=== PATIENT | male | born 1960 | race Caucasian/White ===

== ENCOUNTER 2024-06-12 08:24 | Observation (INO) ==
--- NOTE | 2024-05-09 10:16 | PAT Medication Instructions ---
Medication Instructions Date of Service May 09, 2024 Home Medications Medication Instructions Recorded epinephrine 0.3 mg/0.3 mL 0.3 mg (0.3 mL) IM Q5M PRN 03/06/21 injection, auto-injector (EpiPen) anaphylaxis #2 ea diclofenac sodium 1 % topical gel 2 g topical QID PRN pain, moderate 10/25/22 #100 grams lisinopril 20 mg tablet 20 mg PO QAM #90 tabs 02/20/24 famotidine 20 mg tablet 20 mg PO BID #60 tabs 05/01/24 fluticasone propionate 50 mcg/actuation nasal spray,suspension (Flonase Allergy Relief) 2 spray intranasal DAILY PRN ibuprofen 200 mg tablet 200 mg PO Q6H PRN sucralfate 1 gram tablet 1 g PO QID PRN epinephrine 0.3 mg/0.3 mL injection, auto-injector (EpiPen) 0.3 mg (0.3 mL) IM Q5M PRN diclofenac sodium 1 % topical gel 2 g topical QID PRN lisinopril 20 mg tablet 20 mg PO QAM famotidine 20 mg tablet 20 mg PO BID Prostagenix 3 tabs PO QAM Upwellness [place] Revive 2 tab PO QAM albuterol sulfate 90 mcg/actuation aerosol inhaler 1 - 2 inh inhalation QID PRN Continue as directed fluticasone propionate 50 mcg/actuation nasal spray,suspension (Flonase Allergy Relief) 2 spray intranasal DAILY PRN(if needed) epinephrine 0.3 mg/0.3 mL injection, auto-injector (EpiPen) 0.3 mg (0.3 mL) IM Q5M PRN(if needed) ASK your surgeon for instructions ibuprofen 200 mg tablet 200 mg PO Q6H PRN STOP taking 2 weeks before surgery (or as soon as possible if surgery is within 2 weeks) Prostagenix 3 tabs PO QAM Upwellness [place] Revive 2 tab PO QAM STOP taking 24 hours before surgery diclofenac sodium 1 % topical gel 2 g topical QID PRN DO NOT take the morning of surgery sucralfate 1 gram tablet 1 g PO QID PRN lisinopril 20 mg tablet 20 mg PO QAM Take morning of surgery With a small sip of water, OTHERWISE NOTHING TO EAT OR DRINK AFTER MIDNIGHT: famotidine 20 mg tablet 20 mg PO BID albuterol sulfate 90 mcg/actuation aerosol inhaler 1 - 2 inh inhalation QID PRN (use if needed; please bring with you to hospital day of surgery if possible) Take evening before surgery sucralfate 1 gram tablet 1 g PO QID PRN(if needed) famotidine 20 mg tablet 20 mg PO BID albuterol sulfate 90 mcg/actuation aerosol inhaler 1 - 2 inh inhalation QID PRN (if needed) Other Notes If you have any questions please call us at [phone] or [phone] or [phone] or [phone]
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
[~2024-06-12 08:24] MED LIST: ROPIVACAINE 0.5% 5 MG/ML 30 ML VIAL ONE
--- NOTE | 2024-06-12 08:41 | History & Physical Bridge Note ---
Date of Service June 12, 2024 History & Physical Bridge Note I have examined the patient, reviewed the History & Physical and in the interval since the performance of the History & Physical I have noted the following changes of clinical significance: no changes noted
[2024-06-12] MEDS: ACETAMINOPHEN 500 MG TAB PO SCH ×2 (09:11→14:25)
[2024-06-12] MEDS: Scopolamine 1 MG TDSY TD SCH (09:12)
[2024-06-12] MEDS: CeleBREX 200 MG CAP PO SCH (09:12)
[2024-06-12] MEDS: METOCLOPRAMIDE HCL 10 MG TABLET PO SCH (09:12)
[2024-06-12] MEDS: LR 60ML/HR IV SCH (09:12)
[2024-06-12] MEDS: FAMOTIDINE 20 MG TAB PO SCH ×2 (09:13→20:44)
[2024-06-12] MEDS ORDERED: MIDAZOLAM HCL 1 MG/ML 2ML VIAL ONE (09:18)
[2024-06-12] MEDS ORDERED: fentaNYL citrate PF 100 MCG/2 ML VIAL ONE (09:18)
[2024-06-12] MEDS ORDERED: LIDOCAINE 2% 2 ML VIAL/AMP(20MG/ML) INFIL ONE (09:23)
[2024-06-12] MEDS ORDERED: PROPOFOL IV EMULSION 10 MG/ML 20 ML VIAL IV ONE (09:23)
[2024-06-12] MEDS: LR 500ML BOLUS, THEN 15ML/HR IV SCH (09:38)
[2024-06-12] MEDS: dexAMETHasone**PF** 10 MG/ML VIAL IV SCH (09:38)
[2024-06-12] MEDS ORDERED: fentaNYL citrate PF 100 MCG/2 ML VIAL IV PRN (09:43)
[2024-06-12] MEDS ORDERED: ONDANSETRON INJ 2 MG/ML 2 ML VIAL IV PRN ×2 (09:43→13:33)
[2024-06-12] MEDS ORDERED: ATROPINE SULFATE 0.1 MG/ML 10ML SYR IV PRN (09:43)
[2024-06-12] MEDS ORDERED: HYDROmorphone INJ 1 MG/ML SYRINGE IV PRN (09:43)
[2024-06-12] MEDS ORDERED: ePHEDrine sulfate 50 MG/ML AMP IV PRN (09:43)
[2024-06-12] MEDS: ceFAZolin 2000MG 2,000 MG/15 ML SYR IV SCH ×2 (10:49→19:08)
[2024-06-12] MEDS: ROPIV 0.5% 246mg, Ketorolac 30mg, EPINEPHrine 0.5mg in NSS INFIL SCH (11:29)
[2024-06-12] MEDS: ORTHO JOINT ANESTHETIC ONE (11:36)
[2024-06-12] MEDS: TRANEXAMIC ACID 1,000 MG **IV Intra-op IV SCH (11:36)
--- NOTE | 2024-06-12 12:28 | Operative Report ---
PG Post Operative Report Pre & Post Diagnosis Operation Date: 06/12/24 10:40 Pre-Op Diagnosis: Left Knee Degenerative Joint Disease Post-Op Diagnosis: Left Knee Degenerative Joint Disease I identified the patient and participated in the time-out.: Yes Procedure Operation Date: 06/12/24 10:40 Actual Procedures p Left Total Knee Arthroplasty, Cemented(Left) - Dante Zuleta MD Surgeon Dante Zuleta MD Media Production Support Manager Brian Ibarra PA-C Estimated Blood Loss 50 Findings Consistent with Post-Op Diagnosis Operative findings were advanced left knee tricompartment DJD. He had extensive grade 4 [id number] disease and eburnation of the medial compartment. He had focal grade 4 changes in the lateral compartment pretty extensive grade 4 changes of the patellofemoral compartment. Moderate-sized joint effusion. Slight flexion contracture. Varus deformity to his knee. Specimens Left knee sent for pathology. Anesthesia Type Spinal MAC Complications none Disposition Accompanied Patient To Recovery: No Indications Patient is a 64-year-old gentleman is had a long history of gradually progressive increasing left knee pain discomfort described to gotten worse over time. Failed conservative measures. X-rays reveal advanced left knee DJD. He elected proceed with operative treatment. Description of Procedure Operative implants consist of: 1 Biomet Vanguard size 65 left posterior stabilized femoral component. 2. Biomet size 75 tibial tray. 3. 12 mm PS plus polyethylene insert. 4. 31 x 8 all poly patella. The patient was taken the operating, identified, placed on the operating table in the supine position. All contact areas were appropriately padded. IV antibiotics tried by anesthesia team. Spinal anesthetic and adductor canal block had been provided by the anesthesia team in the holding area. A left thigh turn was then placed. Left lower extremities then prepped draped in the usual sterile fashion. The left leg was elevated and exsanguinated with use of an Esmarch and a turn was placed at 300 mmHg. An anterior approach to the left knee was then performed to longitudinal incision centered over the patella. Sharp dissection Through subcutaneous tissue down the extensor mechanism. A medial parapatellar arthrotomy incision was made. Some subperiosteal dissection was carried out medially. The fat pad was dissected from Neath patella tendon. The lateral patellofemoral ligament was released. Patella subluxated laterally and the knee was flexed. The osteophytes taken on distal femur. ACL PCL were then released from distal femur the tibia subluxated anteriorly. The external tibial alignment jig was then placed on the anterior face the tibia and adjusted 14 mm medially. Proximal tibial cut was made remove about a millimeter of bone from the most deficient aspect of the medial tibial plateau. The tibia was then sized to a size 75. Attention drawn the femur. The distal femur was entered with a sharp drill. Intramedullary canal was suction. A left 6 degree valgus cutting guide was placed. This femoral cutting block was pinned in place. This femoral cut was made to take an additional 3 mm of bone off distal femur. The femur was then sized to a size 65. The AP cutting block was pinned parallel to the epicondylar axis which was 5 degrees of external rotation. The anterior cut, anterior chamfer, posterior cut, posterior chamfer cuts were made. The box cutting guide was placed in the just slight lateral and the box cut was made. The knee was flexed. The remnants of the medial and lateral menisci were excised. The osteophytes taken off the posterior aspect the femur. A trial femoral component was placed. The tibial tray was pinned Linda external rotation and the drill and stem punch were used to create defect in proximal tibia for the tibial tray. Knee was then trialed and the 12 mm insert fit most appropriately. Attention drawn the patella. The patella was cleaned of all soft tissues. Patella thickness measured 23 mm in thickness was cut down to 15. Was sized to a size 31 patella. The lug holes were drilled for 31 patella. The lateral osteophytes removed. Patella button was placed. Knee was taken through range of motion and the patella tracked nicely with no thumbs test. Attention drawn to place the permanent components. All trial components were removed. A bone plug was placed in the distal femur length to limit blood loss. A double batch [place] G cement was mixed. A Biomet Vanguard size 65 left posterior stabilized femoral component, size 75 tibial tray, a 12 mm posterior stabilized polyethylene insert, 31 x 8 all poly patella then cemented in place. The knee was brought out into full extension till cement hardened. Final cement check was then performed. Pericapsular tissues were injected with a total of 100 cc of a combination of Ortho mix. Patient did receive 1 g tranexamic acid but the tourniquet was then let down for final tourniquet time of 55 minutes. Hemostasis assured with electrocautery. Extensor Meclomen closed with combination 1 PDS suture #1 Vicryl suture in [id number] fashion. Extensor Meclomen checked found to be intact and subcutaneous tissue then closed with 2 Dexon suture in a buried interrupted fashion skin was closed skin cheryl. Leg was then cleaned and dried and sterile dressed with Xeroform, 4 fourths, sterile cast padding, Will bandage applied. Patient then transferred to the recovery in stable condition. Patient tolerated procedure well and there were no complications. I attest to the content of the Intraoperative Record and any orders documented therein. Any exceptions are noted below.
--- NOTE | 2024-06-12 13:20 | XRay Report ---
XR knee LT 1 or 2V routine HISTORY: 64 years-old Male Surgical Post Op left knee arthroplasty COMPARISON: 05/17/2024 TECHNIQUE: 2 views of the left knee FINDINGS: Total joint arthroplasty with patellar resurfacing. Anterior midline skin cheryl with expected posto perative soft tissue swelling and deep tissue air. No acute fracture, dislocation or unexpected opaqu e foreign body. IMPRESSION: Total joint arthroplasty with expected postoperative changes. ACT 112: Negative or not required by law. The above report was generated using voice recognition software. It may contain grammatical, syntax o r spelling errors. Electronically signed by: Elvis Emery M.D. 06/12/2024 1:18 PM
--- NOTE | 2024-06-12 13:28 | Anesthesiology Progress Note ---
Date of Service June 12, 2024 Anesthesia Post Procedure Vital Signs Vital Signs: Temp Pulse Pulse Resp BP BP Pulse Ox 06/12/24 13:15 43 L 14 111/69 94 06/12/24 13:05 36.3 C L 45 L 15 107/64 95 06/12/24 12:55 43 L 15 123/67 98 06/12/24 12:45 44 L 16 117/65 95 06/12/24 12:35 71 18 125/75 100 06/12/24 12:28 36.0 C L 57 L 15 113/66 99 06/12/24 08:59 06/12/24 08:59 36.6 C 53 L 20 114/86 98 O2 Del Method O2 Flow Rate 06/12/24 13:15 Room Air 06/12/24 13:05 Room Air 06/12/24 12:55 Oxymask 4 06/12/24 12:45 Oxymask 4 06/12/24 12:35 Oxymask 4 06/12/24 12:28 Oxymask 6 06/12/24 08:59 Room Air 06/12/24 08:59 Room Air Pain Intensity Left Knee: Pain Intensity: 6 Transfer of Care Handoff Completed per policy Notes Mental Status: alert / awake / arousable and participated in evaluation Nausea / Vomiting: adequately controlled Pain: adequately controlled Airway Patency, RR, SpO2: stable & adequate BP & HR: stable & adequate Hydration State: stable & adequate Anesthetic Complications: no major complications apparent and Pt Satisfied with anesthetic care
[2024-06-12] MEDS ORDERED: FLUTICASONE PROPIONATE NA SPR 16 GM BTL NAE PRN (13:33)
[2024-06-12] MEDS ORDERED: METOCLOPRAMIDE HCL INJ 5 MG/ML 2 ML VIAL IV PRN (13:33)
[2024-06-12] MEDS ORDERED: HYDROmorphone INJ 0.5 MG/0.5 ML SYR IV PRN (13:33)
[2024-06-12] MEDS ORDERED: bisacodyL 10 MG SUPP PR PRN (13:33)
[2024-06-12] MEDS ORDERED: MAGNESIUM HYDROXIDE SUSP 30 ML UDC PO PRN (13:33)
[2024-06-12] MEDS ORDERED: SUCRALFATE 1 GM TAB PO PRN (13:33)
[2024-06-12] MEDS ORDERED: NALOXONE HCL 0.4 MG/1 ML VIAL/CARP IV PRN (13:33)
[2024-06-12] MEDS ORDERED: ALUMINUM/MAGNESIUM SUSP 30 ML UDC PO PRN (13:33)
[2024-06-12] MEDS ORDERED: EPINEPHrine INJ 1 MG/ML AMP IM PRN (13:40)
[2024-06-12] MEDS: SODIUM CHLORIDE 0.9% 1,000 ML IV SCH (13:45)
[2024-06-12] MEDS: KETOROLAC 30 MG/ML VIAL IV SCH (14:25)
[2024-06-12] MEDS: oxyCODONE HCL IR 5 MG TAB (IMMEDIATE RELEASE) PO PRN (16:18)
[2024-06-12] MEDS: Scopolamine CHECK PATCH PLACEMENT SCH (16:19)
[2024-06-12] MEDS: TRANEXAMIC ACID / 0.7% NACL 1,000 MG/100 ML BAG IV SCH (19:07)
[2024-06-12] MEDS: ASPIRIN 81 MG ECTAB PO SCH (20:44)
[2024-06-12] MEDS: SENNA 8.6 MG TAB PO SCH ×2 (20:44→20:49)
[2024-06-12] MEDS: DOCUSATE SODIUM 100 MG CAP PO SCH (20:49)
[2024-06-12 23:41] VITALS: RESP 16
[2024-06-13 06:32] LABS: Hematocrit (blood only) 35.1 % (42.0-52.0); Hemoglobin 12.2 g/dl (14.0-18.0); Mean Corpuscular Hemoglobin 30.7 pg (25.0-34.0); Mean Corpuscular Hgb Conc 34.8 g/dL (32.0-36.0); Mean Corpuscular Volume 88.4 fL (80.0-100.0); Mean Platelet Volume 10.1 fL (9.4-12.4); Platelet Count 214 K/uL (130-400); RDW Coefficient of Variation 12.2 % (11.5-14.5); RDW Standard Deviation 39.8 fL (36.4-46.3); Red Blood Count 3.97 M/uL (4.70-6.10); White Blood Count 14.55 K/ul (4.8-10.8)
[2024-06-13 06:47] LABS: BUN Creatinine Ratio 13.5 (10-20); Calcium 8.7 mg/dl (8.6-10.3); Creatinine Clr Calc Pharmacy 90.5 ml/min; Est GFR (African American) 96.4 ml/min; Est GFR (Non-African American) 83.2 ml/min; Potassium 4.1 mmol/L (3.5-5.1)
--- NOTE | 2024-06-13 06:50 | Orthopedic Progress Note ---
Date of Service June 13, 2024 Assessment & Plan (1) Status post total left knee replacement: pain controlled dvt prophylaxis: teds, scd's, aspirin PT/OT wbat d/c planning: home with home health today after PT Subjective .64 year old patient POD #1 from left tka. Doing well. No knee pain. No chest pain. No other complaints. Review of Systems All systems reviewed & are unremarkable except as noted in HPI & below. Physical Exam .alert and oriented. NAD VSS. Has been bradycardic, pulse 43 this morning. Left leg: Dressing clean, dry, intact. NVI. Able to do SLR, DF/PF Results & Data Results & Data Laboratory Results . Diagnostic Findings . PG Care Time/CCT Total # of Minutes Spent Total Time Spent with Patient: Total time spent is greater than 50% in coordination of care (as documented) at patient's floor/unit and/or counseling patient: Coding Level of Care Code 94543 Post Operative Follow-Up Diagnoses Status post total left knee replacement Z96.652
[2024-06-13 07:14] VITALS: BP 128/73; PULSE 47; TEMP 98.4; O2SAT 96
[2024-06-13] MEDS: dexAMETHasone 10 MG in SYRINGE 0 ML IV SCH (07:21)
[2024-06-13] MEDS: INFLUENZA VACC TS2024-25(6m+)/PF (IIV3) 0.5mL Syr IM ONE (07:22)
[2024-06-13] MEDS: lisinopril 20 MG TAB PO SCH (08:02)
[2024-06-13] MEDS: MULTIVITAMIN TAB PO SCH (08:03)
[2024-06-13] MEDS: TAMSULOSIN HCL 0.4 MG CAP PO SCH (08:53)
[2024-06-13] MEDS ORDERED: PROSTAGENIX PO SCH (09:00)
[2024-06-13] MEDS ORDERED: [UNRECOGNIZED DRUG - OTHER] PO SCH (09:00)
--- NOTE | 2024-06-18 09:58 | Discharge Summary ---
Date of Service June 18, 2024 Discharge Data Procedures Performed Operation Date: 06/12/24 10:40 Actual Procedures p Left Total Knee Arthroplasty, Cemented(Left) - Dante Zuleta MD Hospital Course (1) Status post total left knee replacement: This is a 64 year old patient admitted on 06/12/24 and underwent total knee arthroplasty. He tolerated the procedure well and there were no complications. Transferred to the PACU post op and later to the orthopedic floor for further care. He was given ancef for antibiotic prophylaxis. He was also given MYRNA stockings, SCDs, and aspirin for DVT prophylaxis. Hemoglobin, hematocrit, and vital signs were monitored during his hospital stay and remained stable. Did not require any blood transfusions. There were no complications during his hospital stay. By post op day #1 the patient was tolerating a regular diet, pain was reasonably controlled with oral pain medicine, and he was participating in physical therapy. On post op day #1 the patient was discharged home and set up with home health care. He was given printed discharge instructions including prescriptions for extra strength tylenol, aspirin, cefadroxil, ketorolac, zofran, senokot, ox ycodone, and flomax. Continue physical therapy, weight bearing as tolerated. Continue MYRNA stockings. Follow up approximately 2 weeks post op or sooner if there are problems or concerns. Coding Level of Care Code None Diagnoses Status post total left knee replacement Z96.652
== END 2024-06-13 11:34 | disposition home health service (06) ==
LOC: ASU 08:24 → 3E 08:24
DX: K21.9 Gastro-esophageal reflux disease without esophagitis; Z91.013 Allergy to seafood; Z79.899 Other long term (current) drug therapy; Z79.82 Long term (current) use of aspirin; I10 Essential (primary) hypertension; G47.33 Obstructive sleep apnea (adult) (pediatric); M17.12 Unilateral primary osteoarthritis, left knee; J45.909 Unspecified asthma, uncomplicated